=== PATIENT | male | born 1985 | race Caucasian/White ===

== ENCOUNTER 2025-03-28 14:39 | Emergency (ER) | payer SELFPAY ==
[~2025-03-28] VITALS: Ht 172.7 cm; Wt 81.6 kg
[2025-03-28 14:43] VITALS: BP 134/77; O2SAT 97
== END 2025-03-28 15:05 | disposition left against medical advice (07) ==
LOC: ER 14:46
DX: Z53.21 Procedure and treatment not carried out due to patient leaving prior to being seen by health care provider (principal)
CPT/HCPCS: A4606; A4663